=== PATIENT | female | born 1990 | race Caucasian/White ===

== ENCOUNTER 2020-04-17 20:47 | Emergency (ER) | payer MEDICAID ==
[~2020-04-17] VITALS: Ht 167.6 cm; Wt 80.0 kg
[2020-04-17 21:00] VITALS: BP 151/90
== END 2020-04-17 21:11 | disposition left against medical advice (07) ==
LOC: ER 20:47
DX: M54.2 Cervicalgia (principal); M79.601 Pain in right arm; R10.9 Unspecified abdominal pain; G89.11 Acute pain due to trauma; V49.49XA Driver injured in collision with other motor vehicles in traffic accident, initial encounter; Y93.89 Activity, other specified; Y92.411 Interstate highway as the place of occurrence of the external cause
CPT/HCPCS: 99281